=== PATIENT | female | born 1965 | race African-American/Black ===

== ENCOUNTER 2017-02-21 15:48 | Emergency (ER) | payer OTHER ==
[~2017-02-21] VITALS: Ht 160 cm; Wt 101.5 kg
[~2017-02-21 15:48] MED LIST: ACTOS45 MG PO; BENTYL10 MG PO; BENTYL20 MG PO; FEXOFENADINE H180 MG PO; GLUCOPHAGE500 MG PO; GLYBURIDE5 MG PO; HYOMAX-DT0.375 MG PO; METFORMIN HCL1000 MG PO; PIOGLITAZONE HC30 MG PO; TYLENOL WITH C1 EACH PO; ULTRACET1 TABLET PO; ZESTRIL,PRINIVIL5 MG PO; ZOFRAN ODT4 MG PO; [UNRECOGNIZED DRUG - REMARK]
[2017-02-21 18:32] LABS: HEMATOCRIT 37.2 % (36.0-46.0); MCH 25.9 PG (29.0-34.0); MCHC 32.3 G/DL (30.0-36.0); MCV 80.2 FL (83-99); MEAN PLAT.VOLUME 9.2 uM^3 (9.5-12.4); PLATELET COUNT 242 K/uL (156-360); RBC DIS.WIDTH-CV 13.3 % (11.8-14.6); RBC DIS.WIDTH-SD 38.3 % (39-53); RED BLOOD COUNT 4.64 M/uL (3.80-5.20); WHITE BLOOD COUNT 5.4 K/uL (4.1-10.2)
[2017-02-21 18:41] LABS: CHLORIDE 103 mEq/L (99-109); SODIUM 136 mEq/L (136-147)
[2017-02-21 18:42] LABS: GLUCOSE 228 mg/dL (70-99)
[2017-02-21 18:44] LABS: ANION GAP 6 MEQ/L (2-14)
[2017-02-21 18:46] LABS: GFR ESTIMATE (CALCULATED) > 59 mL/min/
[2017-02-21 18:47] LABS: UREA NITROGEN (BUN) 9 mg/dL (9-23)
[2017-02-21 18:53] LABS: TROP-I INTERPRETATION NEGATIVE; TROPONIN-I < 0.01 ng/mL (0.0-0.30)
[2017-02-21] MEDS ORDERED: PROTONIX20 MG PO (19:04)
[2017-02-21 19:19] VITALS: BP 127/72
== END 2017-02-21 19:21 | disposition home or self-care (01) ==
LOC: EME 15:48
PROVIDERS: Emergency Medicine
DX: K21.0 Gastro-esophageal reflux disease with esophagitis (principal); R07.9 Chest pain, unspecified; E11.9 Type 2 diabetes mellitus without complications; H91.90 Unspecified hearing loss, unspecified ear; Z79.84 Long term (current) use of oral hypoglycemic drugs; Z88.8 Allergy status to other drugs, medicaments and biological substances
CPT/HCPCS: 71020; 80048; 84484; 85027; 93005; 99281; 99284

== ENCOUNTER 2017-04-12 05:42 | Emergency (ER) | payer OTHER ==
[~2017-04-12] VITALS: Ht 160 cm; Wt 99.2 kg
[~2017-04-12 05:42] MED LIST changes: +PROTONIX20 MG PO
[2017-04-12] MEDS ORDERED: FLEXERIL5 MG PO (09:25)
[2017-04-12 09:46] VITALS: BP 109/80
== END 2017-04-12 09:47 | disposition home or self-care (01) ==
LOC: EME 05:42
DX: S16.1XXA Strain of muscle, fascia and tendon at neck level, initial encounter (principal); R51 Headache; V43.62XA Car passenger injured in collision with other type car in traffic accident, initial encounter; Y92.410 Unspecified street and highway as the place of occurrence of the external cause; H91.90 Unspecified hearing loss, unspecified ear; E11.9 Type 2 diabetes mellitus without complications; Z79.84 Long term (current) use of oral hypoglycemic drugs
CPT/HCPCS: 70450; 72040; 99281; 99284

== ENCOUNTER 2017-07-04 17:41 | Emergency (ER) | payer OTHER ==
[~2017-07-04] VITALS: Ht 160 cm; Wt 98.1 kg
[~2017-07-04 17:41] MED LIST changes: +FLEXERIL5 MG PO
[2017-07-04 19:18] LABS: HEMATOCRIT 39.6 % (36.0-46.0); HEMOGLOBIN 13.2 G/DL (11.9-15.5); MCH 26.9 PG (29.0-34.0); MCHC 33.3 G/DL (30.0-36.0); MCV 80.7 FL (83-99); PLATELET COUNT 283 K/uL (156-360); RBC DIS.WIDTH-CV 13.5 % (11.8-14.6); RBC DIS.WIDTH-SD 39.2 % (39-53); RED BLOOD COUNT 4.91 M/uL (3.80-5.20)
[2017-07-04 19:25] LABS: APPEARANCE SL.HAZY ((CLEAR)); BILIRUBIN NEGATIVE; BLOOD LARGE; COLOR YELLOW ((YELLOW)); GLUCOSE (STRIP) >=500; KETONES 5; LEUKOCYTES LARGE; NITRITE NEGATIVE; PROTEIN (STRIP) 100; SPECIFIC GRAVITY 1.025 (1.000-1.030); UROBILINOGEN 0.2 MG/DL (0.2-1.0)
[2017-07-04 19:28] LABS: ALBUMIN 4.3 g/dL (3.2-4.8)
[2017-07-04 19:29] LABS: CHLORIDE 103 mEq/L (99-109); POTASSIUM 3.8 mEq/L (3.7-5.4); SODIUM 140 mEq/L (136-147)
[2017-07-04 19:31] LABS: GLUCOSE 287 mg/dL (70-99); TOTAL PROTEIN 8.2 g/dL (6.4-8.3)
[2017-07-04 19:33] LABS: TOTAL BILIRUBIN 0.3 mg/dL (0.0-1.0)
[2017-07-04 19:34] LABS: ALKALINE PHOSPHATASE 119 IU/L (3-129)
[2017-07-04 19:35] LABS: CREATININE 0.8 mg/dL (0.6-1.3); GFR ESTIMATE (CALCULATED) > 59 mL/min/
[2017-07-04 19:36] LABS: AST (GOT) 22 IU/L (2-34); UREA NITROGEN (BUN) 14 mg/dL (9-23)
[2017-07-04 19:37] LABS: ALT (GPT) 22 IU/L (3-49)
[2017-07-04 19:44] LABS: BACTERIA RARE /HPF; EPITHELIAL CELLS 2+ /HPF; MUCUS NONE SEEN /LPF; RED BLOOD CELLS TNTC /HPF (0-5); UCUL ADDED? YES; WHITE BLOOD CELLS TNTC /HPF (0-5)
[2017-07-04] MEDS ORDERED: KEFLEX500 MG PO (20:41)
[2017-07-04] MEDS ORDERED: PERCOCET 5/31 TABLET PO (20:55)
[2017-07-04 21:08] VITALS: BP 122/91
== END 2017-07-04 21:16 | disposition home or self-care (01) ==
LOC: EME 17:41
PROVIDERS: Nurse Practitioner Family
DX: N39.0 Urinary tract infection, site not specified (principal); R10.2 Pelvic and perineal pain; E11.9 Type 2 diabetes mellitus without complications; Z79.84 Long term (current) use of oral hypoglycemic drugs; Z88.6 Allergy status to analgesic agent
CPT/HCPCS: 76856; 80053; 81003; 85027; 87086; 99281; 99284